=== PATIENT | female | born 1985 | race Caucasian/White ===

== ENCOUNTER 2017-04-04 21:39 | Emergency (ER) | payer MEDICAID ==
[~2017-04-04 21:39] MED LIST: AUGMENTIN 875-11 TAB PO; BIRTH CONTROL; CRANBERRY 400 M1 TAB PO; IRON1 TA1 PO; IRON1 TAB; KEFLEX500 MG PO; LEXAPRO10 MG; MACROBID 100 M100 MG PO; MULTIVITAMIN1 TAB PO; NORCO 5/325 TAB1 TAB PO; PRENATAL VITAMI PO; PRENATAL VITAMI1 TAB PO; RECLIPSEN1 TAB PO; REGLAN10 MG PO; VICODIN 5/500 T1 TAB PO
== END 2017-04-04 23:11 ==
LOC: EDMED 21:39
DX: R51 Headache (principal); R11.2 Nausea with vomiting, unspecified; F17.200 Nicotine dependence, unspecified, uncomplicated
CPT/HCPCS: J0780; J1200